=== PATIENT | male | born 1960 | race Caucasian/White ===

== ENCOUNTER 2023-02-24 12:32 | Inpatient (IN) | payer OTHER ==
[2023-02-24 13:03] VITALS: BMI 25.4
[2023-02-24] MEDS ORDERED: NICOTINE POLACRILEX 2 MG GUM BUC PRN (15:36)
[2023-02-24] MEDS ORDERED: POLYETHYLENE GLYCOL (HEALTHYLAX) 3350 17 GM PACKET PO PRN (15:36)
[2023-02-24] MEDS ORDERED: BENZONATATE 200 MG CAPSULE PO PRN (15:36)
[2023-02-24] MEDS ORDERED: IBUPROFEN 400 MG TABLET (FP) PO PRN (15:36)
[2023-02-24] MEDS ORDERED: guaiFENesin 600 MG TABLET.ER (FP) PO PRN (15:36)
[2023-02-24] MEDS ORDERED: BENZOCAINE/MENTHOL (CHLORASEPTIC ) LOZENGE MM PRN (15:36)
[2023-02-24] MEDS ORDERED: MAGNESIUM HYDROX 2400MG/30ML ORAL SUSPENSION 30 ML CUP PO PRN (15:36)
[2023-02-24] MEDS ORDERED: IBUPROFEN 600 MG TABLET (FP) PO PRN (15:36)
[2023-02-24] MEDS ORDERED: LOPERAMIDE HCL 2 MG CAPSULE PO PRN (15:36)
[2023-02-24] MEDS ORDERED: NALOXONE HCL 0.4 MG/ML VIAL IM PRN (15:36)
[2023-02-24] MEDS ORDERED: COLLOIDAL OATMEAL 1 BAR EACH TP PRN (15:36)
[2023-02-24] MEDS ORDERED: MAG HYDROX/AL HYDROX/SIMETH 30 ML UNIT-DOSE CUP PO PRN (15:36)
[2023-02-24] MEDS ORDERED: ACETAMINOPHEN 325 MG TABLET (FP) PO PRN (15:36)
[2023-02-24] MEDS ORDERED: NALOXONE HCL (KLOXXADO) 8 MG SPRAY NS PRN (15:36)
[2023-02-24] MEDS: PRENATAL VITAMINS W/ FOLIC ACID TABLET (FP) PO SCH (21:10)
[2023-02-24] MEDS: THIAMINE HCL 100 MG TABLET (FP) PO SCH (21:18)
[2023-02-24] MEDS: MELATONIN 5 MG TABLETS PO SCH (21:18)
[2023-02-24] MEDS: hydrOXYzine PAMOATE 25 MG CAPSULE (FP) PO PRN (21:19)
[2023-02-25] MEDS: ALBUTEROL SO4 HFA INHALER IH PRN ×4 (06:28→21:32)
[2023-02-25] MEDS: NICOTINE 21 MG/24 HOURS TOPICAL PATCH TD SCH (11:03)
[2023-02-25] MEDS: PRENATAL VITAMINS W/ FOLIC ACID TABLET (FP) PO SCH (11:03)
[2023-02-25] MEDS: SERTRALINE HCL 50 MG TABLET (FP) PO SCH (12:02)
[2023-02-25 12:21] LABS: HEMATOCRIT 38.9 % (35.4-49); HEMOGLOBIN 13.7 GM/dL (11.7-16.9); MCH 31.3 pg (25.7-33.7); MCHC 35.3 g/dl (32.0-35.9); MEAN CELL VOLUME 88.5 fl (80-96); MEAN PLT VOLUME 8.1 fl (7.5-11.1); PLATELET COUNT 250 10^3/uL (134-434); RBC 4.39 M/mm3 (4.00-5.60); RDW 13.9 % (11.9-15.9); WHITE BLOOD COUNT 6.3 K/mm3 (4.0-10.0)
[2023-02-25 12:29] LABS: CHLORIDE 109 mmol/L (98-107); POTASSIUM 4.3 mmol/L (3.5-5.1); SODIUM 140 mmol/L (136-145)
[2023-02-25 12:45] LABS: CALCIUM 8.6 mg/dL (8.5-10.1)
[2023-02-25 12:46] LABS: ALBUMIN 3.2 g/dl (3.4-5.0); ANION GAP 5 mmol/L (4-13); BLOOD UREA NITROGEN 13.2 mg/dL (7-18); CO2 27 mmol/L (21-32); GLUCOSE,RANDOM 214 mg/dL (74-106)
[2023-02-25 12:47] LABS: CREATININE 0.8 mg/dL (0.55-1.3); SGOT/AST 16 U/L (15-37)
[2023-02-25 12:49] LABS: BILIRUBIN,TOTAL 0.2 mg/dL (0.2-1); SGPT/ALT 18 U/L (13-61)
[2023-02-25 12:50] LABS: ALK PHOS 104 U/L (45-117)
[2023-02-25 13:22] LABS: SYPHILIS W/ RPR CONF REACTIVE (NONREACTIVE)
[2023-02-25] MEDS: INSULIN SLIDING SCALE (NOVOLOG) 1 VIAL SQ SCH ×3 (13:52→21:24)
[2023-02-25] MEDS: MELATONIN 5 MG TABLETS PO SCH (21:24)
[2023-02-25] MEDS: THIAMINE HCL 100 MG TABLET (FP) PO SCH (21:24)
[2023-02-26] MEDS: hydrOXYzine PAMOATE 25 MG CAPSULE (FP) PO PRN (06:15)
[2023-02-26] MEDS: INSULIN SLIDING SCALE (NOVOLOG) 1 VIAL SQ SCH ×4 (07:07→21:44)
[2023-02-26 07:16] VITALS: TEMP 97.5
[2023-02-26] MEDS: ALBUTEROL SO4 HFA INHALER IH PRN ×3 (07:32→13:58)
[2023-02-26] MEDS: SERTRALINE HCL 50 MG TABLET (FP) PO SCH (10:42)
[2023-02-26] MEDS: PRENATAL VITAMINS W/ FOLIC ACID TABLET (FP) PO SCH (10:42)
[2023-02-26] MEDS: NICOTINE 21 MG/24 HOURS TOPICAL PATCH TD SCH (10:44)
[2023-02-26] MEDS ORDERED: LOSARTAN 50MG/HCTZ 12.5MG 1 TAB PO SCH (13:30)
[2023-02-26] MEDS: LOSARTAN POTASSIUM 50 MG TABLET PO SCH (13:57)
[2023-02-26] MEDS: ASPIRIN COATED 81 MG TABLET.EC PO SCH (13:57)
[2023-02-26] MEDS: HYDROCHLOROTHIAZIDE 12.5 MG CAPSULE (FP) PO SCH (13:57)
[2023-02-26] MEDS: CLOPIDOGREL BISULFATE 75 MG TABLET (FP) PO SCH (13:57)
[2023-02-26] MEDS: MELATONIN 5 MG TABLETS PO SCH (21:29)
[2023-02-26] MEDS: THIAMINE HCL 100 MG TABLET (FP) PO SCH (21:29)
[2023-02-26] MEDS: GABAPENTIN 300 MG CAPSULE PO SCH (21:29)
[2023-02-27 05:07] LABS: URINE APPEARANCE CLEAR; URINE BILIRUBIN NEGATIVE (NEGATIVE); URINE COLOR YELLOW; URINE GLUCOSE (UA) 3+ (NEGATIVE); URINE KETONE NEGATIVE (NEGATIVE); URINE LEUK ESTERASE NEGATIVE (NEGATIVE); URINE NITRITE NEGATIVE (NEGATIVE); URINE PROTEIN NEGATIVE (NEGATIVE); URINE UROBILINOGEN 0.2 mg/dL (0.2-1.0)
[2023-02-27] MEDS: INSULIN SLIDING SCALE (NOVOLOG) 1 VIAL SQ SCH (06:26)
[2023-02-27] MEDS: ALBUTEROL SO4 HFA INHALER IH PRN ×2 (06:28→10:16)
[2023-02-27] MEDS: hydrOXYzine PAMOATE 25 MG CAPSULE (FP) PO PRN (07:00)
[2023-02-27 07:02] VITALS: PULSE 61; RESP 18
[2023-02-27 09:40] VITALS: BP 154/79
[2023-02-27] MEDS: CLOPIDOGREL BISULFATE 75 MG TABLET (FP) PO SCH (10:13)
[2023-02-27] MEDS: LOSARTAN POTASSIUM 50 MG TABLET PO SCH (10:13)
[2023-02-27] MEDS: GABAPENTIN 300 MG CAPSULE PO SCH (10:13)
[2023-02-27] MEDS: PRENATAL VITAMINS W/ FOLIC ACID TABLET (FP) PO SCH (10:13)
[2023-02-27] MEDS: NICOTINE 21 MG/24 HOURS TOPICAL PATCH TD SCH (10:13)
[2023-02-27] MEDS: SERTRALINE HCL 50 MG TABLET (FP) PO SCH (10:13)
[2023-02-27] MEDS: HYDROCHLOROTHIAZIDE 12.5 MG CAPSULE (FP) PO SCH (10:13)
[2023-02-27] MEDS: ASPIRIN COATED 81 MG TABLET.EC PO SCH (10:13)
== END 2023-02-27 10:45 | disposition left against medical advice (07) | DRG 770 ==
LOC: YASAS 12:32 → Y3W 20:11
PROVIDERS: ADMIT Allergy & Immunology; ATTEND Psychiatry & Neurology Pain Medicine
PROC: HZ42ZZZ Group Counseling for Substance Abuse Treatment, Cognitive-Behavioral (ICD-10-PCS; principal; 2023-02-24)
DX: F10.20 Alcohol dependence, uncomplicated (principal); F14.20 Cocaine dependence, uncomplicated; F12.20 Cannabis dependence, uncomplicated; F17.210 Nicotine dependence, cigarettes, uncomplicated; F41.9 Anxiety disorder, unspecified; F32.A Depression, unspecified; I25.10 Atherosclerotic heart disease of native coronary artery without angina pectoris; I10 Essential (primary) hypertension; Z95.1 Presence of aortocoronary bypass graft; Z95.5 Presence of coronary angioplasty implant and graft; K21.9 Gastro-esophageal reflux disease without esophagitis; J45.909 Unspecified asthma, uncomplicated; I69.851 Hemiplegia and hemiparesis following other cerebrovascular disease affecting right dominant side
CPT/HCPCS: 36415; 80053; 80307; 81003; 82962; 85027; 86593; 86780; 86803; 87522; 87635